=== PATIENT | male | born 1970 | race Caucasian/White ===

== ENCOUNTER 2016-07-27 15:01 | Emergency (ER) | payer MEDICAID, OTHER ==
[2016-07-27 15:03] VITALS: BMI 24.4
[2016-07-27 15:06] VITALS: BP 106/69; PULSE 83; RESP 19; TEMP 98.9; O2SAT 99
[2016-07-27] MEDS ORDERED: Naproxen 550 mg Tab PO ONE (15:18)
--- NOTE | 2016-07-27 15:23 | ED PDOC ---
Arrival/HPI - General Historian: Patient, Spouse - History of Present Illness Time/Duration: 24 hours Symptom Onset: Sudden Symptom Course: Worsening Quality: Aching Severity Level: Moderate Activities at Onset: Other (on a ladder.) Context: Home <Stacie Starkey - Last Filed: 07/27/16 16:25> <ChiaraDane P - Last Filed: 07/27/16 16:44> - General Chief Complaint: Trauma Time Seen by Provider: 07/27/16 15:06 - History of Present Illness Narrative History of Present Illness (Text): 07/27/16 15:20 Patient is a 46 y/o with no PMH presenting with left elbow pain. A s per patient he was on a ladder yesterday fixing something in the ceiling when he fell 5 5feets from the floor, patient tried to break the fall by grabbing the floor with his left hand causing his left hand to twist. Patient states when he woke up today he wasn't able to supanate, can only pronate. Patient denies hitting his head, denies LOC. Patient's added patient also has left ankle pain, however patient states he had ankle pain yesterday, however he no longer has it today. patient didn't try any meds to relief the pain. (Stacie Starkey) Past Medical History - Provider Review Nursing Documentation Reviewed: Yes - Travel History Have you recently traveled outside [place] w/in the past 3 mons?: No - Infectious Disease Hx of Infectious Diseases: None - Tetanus Immunization Tetanus Immunization: Up to Date - Psychiatric Hx Psychophysiologic Disorder: No Hx Anxiety: No Hx Bipolar Disorder: No Hx Depression: No Hx Emotional Abuse: No Hx Hallucinations: No Hx Panic Disorder: No Hx Post Traumatic Stress Disorder: No Hx Psychosis: No Hx Physical Abuse: No Hx Schizophrenia: No Hx Sexual Abuse: No Hx Substance Use: No - Anesthesia Hx Anesthesia: No Hx Anesthesia Reactions: No Hx Malignant Hyperthermia: No <Stacie Starkey - Last Filed: 07/27/16 16:25> Family/Social History - Physician Review Nursing Documentation Reviewed: Yes Family/Social History: No Known Family HX Smoking Status: Never Smoked Hx Alcohol Use: No Hx Substance Use: No <Stacie Starkey - Last Filed: 07/27/16 16:25> Allergies/Home Meds <Stacie Starkey - Last Filed: 07/27/16 16:25> <Dane Guadarrama P - Last Filed: 07/27/16 16:44> Allergies/Adverse Reactions: Allergies No Known Allergies Allergy (Verified 07/27/16 15:03) Review of Systems - Review of Systems Constitutional: Normal Eyes: Normal ENT: Normal Respiratory: Normal Cardiovascular: Normal Gastrointestinal: Normal Genitourinary Male: Normal Musculoskeletal: Other (left elbow pain. ) Skin: Normal Neurological: Normal Endocrine: Normal Hemo/Lymphatic: Normal Psychiatric: Normal <Stacie Starkey - Last Filed: 07/27/16 16:25> Physical Exam Vital Signs Reviewed: Yes Temperature: Afebrile Blood Pressure: Normal Pulse: Regular Appearance: Positive for: Well-Appearing, Non-Toxic, Comfortable Pain Distress: None Mental Status: Positive for: Alert and Oriented X 3 - Systems Exam Head: Present: Atraumatic, Normocephalic Pupils: Present: PERRL Mouth: Present: Moist Mucous Membranes Neck: Present: Normal Range of Motion Respiratory/Chest: Present: Clear to Auscultation, Good Air Exchange. No: Respiratory Distress, Accessory Muscle Use Cardiovascular: Present: Regular Rate and Rhythm, Normal S1, S2. No: Murmurs Abdomen: Present: Normal Bowel Sounds. No: Tenderness, Distention Upper Extremity: Present: Normal Inspection, NORMAL PULSES, Tenderness (at the elbow joint), Capillary Refill < 2s, Other (Fflexion and extension 5/5, unbale to supanate, can pronate fully. ). No: Cyanosis, Edema, Swelling, Erythema Lower Extremity: Present: Normal Inspection. No: Edema Neurological: Present: GCS=15 Skin: Present: Warm, Dry, Normal Color. No: Rashes Psychiatric: Present: Alert, Oriented x 3 <Stacie Starkey - Last Filed: 07/27/16 16:25> Medical Decision Making Re-evaluation Time: 16:00 Reassessment Condition: Re-examined, Improving,but remains with symptoms - RAD Interpretation Technology Advisor: Radiologist <Stacie Starkey - Last Filed: 07/27/16 16:25> <Dane Guadarrama P - Last Filed: 07/27/16 16:44> ED Course and Treatment: 07/27/16 15:26 46 y/o with left elbow pain s/p fall. Pain control with naproxen, left elbow x-ray. and evaluate. (Stacie Starkey) Patient Seen With Resident: In agreement with resident note which contains more details about the patient. Patient was seen and evaluated with resident. Came up with plan and treatment together. A 46 year old male with left elbow pain after a fall. Additional HPI details as noted by resident. On physical exam, patient has tenderness at the elbow joint, flexion and extension 5/5, unable to supinate, full pronation. Xray of left elbow ordered to rule out fracture. Will give patient naprozen for pain. 07/27/16 16:[address] Knight- rec splint and pt to see him in office on thursday. (Dane Guadarrama) - RAD Interpretation Narrative RAD Interpretations (Text): 07/27/16 16:25 Prominent anterior and posterior fat pad. Intra-articular radial head fracture. Soft tissue swelling. (Stacie Starkey) Radiology Orders: 07/27/16 15:17 ELBOW LEFT 3 VIEWS ROUTINE [RAD] Stat - Medication Orders Current Medication Orders: Discontinued Medications Naproxen (Anaprox Ds) 550 mg PO ONCE ONE Stop: 07/27/16 15:19 Last Admin: 07/27/16 15:27 Dose: 550 mg <Stacie Starkey - Last Filed: 07/27/16 16:25> - Scribe Statement The provider has reviewed the documentation as recorded by the Scribe <aDne Guadarrama - Last Filed: 07/27/16 16:44> - Scribe Statement Sanaz Rodriguez Provider Scribe Attestation: All medical record entries made by the Scribe were at my direction and personally dictated by me. I have reviewed the chart and agree that the record accurately reflects my personal performance of the history, physical exam, medical decision making, and the department course for this patient. I have also personally directed, reviewed, and agree with the discharge instructions and disposition. (Dane Guadarrama) Disposition/Present on Arrival - Present on Arrival Any Indicators Present on Arrival: No History of DVT/PE: No History of Uncontrolled Diabetes: No Urinary Catheter: No History of Decub. Ulcer: No History Surgical Site Infection Following: None - Disposition Have Diagnosis and Disposition been Completed?: Yes Disposition Time: 16:32 Patient Plan: Discharge <Stacie Starkey - Last Filed: 07/27/16 16:25> <Dane Guadarrama - Last Filed: 07/27/16 16:44> - Disposition Diagnosis: Radial head fracture Disposition: HOME/ ROUTINE Patient Problems: Current Active Problems Problem Status Onset Radial head fracture Acute Condition: STABLE Discharge Instructions (ExitCare): Elbow Fracture in Adults (ED) Additional Instructions: Please call the orthopedic doctor Dr Knight tomorrow to schedule appointment for Thursday. Keep the elbow in the splint. Take the naproxen only as needed for pain. Go to the nearest emergency room if symptoms such as chest pain, sob, fever. Prescriptions: Naproxen 500 mg PO BID PRN #20 tab PRN Reason: Pain, Moderate (4-7) Referrals: Zoltan Tejeda MD [Primary Care Provider] - Follow up with primary Michel Knight III, MD [Medical Doctor] - Follow up with primary Forms: WORK NOTE
--- NOTE | 2016-07-27 15:59 | RAD ---
PROCEDURE: Radiographs of the left elbow. HISTORY: fall, left elbow pain COMPARISON: None available. FINDINGS: BONES: Intra-articular radial head fracture. Remainder the visualized osseous structures appear grossly intact. JOINTS: No dislocation. SOFT TISSUES: Soft tissue swelling. No evidence of radiopaque foreign body. JOINT EFFUSION: Prominent anterior and posterior fat pads. OTHER FINDINGS: None IMPRESSION: Prominent anterior and posterior fat pads. Intra-articular radial head fracture. Soft tissue swelling.
== END 2016-07-27 16:45 | disposition home or self-care (01) ==
LOC: ED 15:01
DX: S52.122A Displaced fracture of head of left radius, initial encounter for closed fracture (principal); W11.XXXA Fall on and from ladder, initial encounter; Y93.89 Activity, other specified; Y92.89 Other specified places as the place of occurrence of the external cause